=== PATIENT | male | born 1955 | race Caucasian/White ===

== ENCOUNTER 2022-05-10 17:03 | Inpatient (IN) | payer MEDICARE, MEDICAID ==
[~2022-05-10] VITALS: Ht 177.8 cm; Wt 71.4 kg
[~2022-05-10 17:03] MED LIST: ACET-784 PO; BENZ0.5T49 PO; BISA-151 PO; DOCU-350 PO; GABA-1181 PO; LEVO125T4 PO; LITH300C3 PO; LITH600C5 PO; LORA-999 PO; MAGN-169 PO; QUES4 PO; QUET25TA PO; RISP2TAB45 PO; RISP3TAB35 PO
[2022-05-10 17:53] LABS: BASOPHILS % (AUTO) 0.8 % (0.0-2.0); EOSINOPHILS % (AUTO) 4.4 % (1.0-6.0); HEMATOCRIT 36.5 % (41-53); HEMOGLOBIN 12.3 g/dL (13.5-17.5); LYMPHOCYTES # (AUTO) 1.2 K/uL (1.0-4.8); LYMPHOCYTES % (AUTO) 11.6 % (22.0-44.0); MEAN CORPUSCULAR HEMOGLOBIN 31.2 pg (26.0-34.0); MEAN CORPUSCULAR HGB CONC 33.6 G/dL (31.0-37.0); MEAN CORPUSCULAR VOLUME 93 fL (80-100); MONOCYTES # (AUTO) 0.7 K/uL (0.1-1.0); MONOCYTES % (AUTO) 6.8 % (2.0-9.0); NEUTROPHILS # (AUTO) 7.7 K/uL (1.8-7.7); NEUTROPHILS % (AUTO) 76.4 % (40.0-70.0); PLATELET COUNT (AUTO) 210 K/uL (150-450); RED BLOOD CELL COUNT(AUTO) 3.94 MIL/uL (4.50-5.90); RED CELL DISTRIBUTION WIDTH 14.3 % (11.5-14.5)
[2022-05-10 18:00] LABS: AMPHET/METH SCREEN,URINE NEGATIVE (NEGATIVE); BARBITURATE SCREEN, URINE NEGATIVE (NEGATIVE); BENZODIAZEPINES SCREEN,URINE NEGATIVE (NEGATIVE); CANNABINOID SCREEN,URINE NEGATIVE (NEGATIVE); COCAINE SCREEN,URINE NEGATIVE (NEGATIVE); METHADONE SCREEN, URINE NEGATIVE (NEGATIVE); OPIATE SCREEN,URINE NEGATIVE (NEGATIVE); PHENCYCLIDINE SCREEN,URINE NEGATIVE (NEGATIVE)
[2022-05-10 18:02] LABS: ANION GAP 8 mmol/L (8-16); CALCIUM, TOTAL 9.8 mg/dL (8.8-10.5); CARBON DIOXIDE 26 mmol/L (22-29); CHLORIDE 96 mmol/L (98-107); CREATININE 0.91 mg/dL (0.60-1.30); GLOMERULAR FILTR. RATE CALC > 60 mL/min (>60); GLUCOSE,RANDOM 104 mg/dL (70-110); POTASSIUM 4.3 mmol/L (3.5-5.1); SODIUM SERUM 130 mmol/L (136-145); UREA NITROGEN, BLOOD 18 mg/dL (7-18)
[2022-05-10 18:08] LABS: ALANINE AMINOTRANSFERASE 24 U/L (12-78); ALBUMIN 4.3 g/dL (3.4-5.0); ALKALINE PHOSPHATASE 90 U/L (46-116); ASPARTATE AMINOTRANSFERASE 17 U/L (15-37); BILIRUBIN,TOTAL 0.3 mg/dL (0.1-1.0); LITHIUM 0.71 mmol/L (0.60-1.20); TOTAL PROTEIN, SERUM 7.7 g/dL (6.4-8.2)
[2022-05-10 18:24] LABS: COVID AG,FIA SOURCE NASAL SWAB
[2022-05-10] MEDS ORDERED: ZOLPIDEM TARTRATE 10 MG TABLET PO PRN (20:00)
[2022-05-11] MEDS: HALOPERIDOL 5 MG TABLET PO PRN (17:56)
[2022-05-11] MEDS: LORazepam 2 MG TABLET PO PRN (17:56)
[2022-05-11] MEDS: HYDROCHLOROTHIAZIDE 25 MG TABLET PO SCH (18:30)
[2022-05-11] MEDS: LOSARTAN POTASSIUM 50 MG TABLET PO SCH (18:32)
[2022-05-12] MEDS: LOSARTAN POTASSIUM 50 MG TABLET PO SCH (10:45)
[2022-05-12] MEDS: HYDROCHLOROTHIAZIDE 25 MG TABLET PO SCH (10:45)
[2022-05-12] MEDS ORDERED: DiphenhydrAMINE HCL 50 MG/ML VIAL ONE (12:40)
[2022-05-12] MEDS ORDERED: LORazepam 2 MG/ML VIAL ONE (12:40)
[2022-05-12] MEDS ORDERED: HALOPERIDOL LACTATE 5 MG/ML VIAL ONE (12:40)
[2022-05-12] MEDS ORDERED: DiphenhydrAMINE HCL 50 MG/ML VIAL IM ONE (12:45)
[2022-05-12] MEDS ORDERED: LORazepam 2 MG/ML VIAL IM ONE (12:45)
[2022-05-12] MEDS ORDERED: HALOPERIDOL LACTATE 5 MG/ML VIAL IM ONE (12:45)
[2022-05-12 14:25] VITALS: BP 161/78
[2022-05-12] MEDS ORDERED: LOPERAMIDE HCL 2 MG CAPSULE PO PRN (15:45)
[2022-05-12] MEDS ORDERED: GuaiFENesin/D-METHORPHAN [SUGAR-FREE] 200-20MG/10 ML SYRUP UDCUP PO PRN (15:45)
[2022-05-12] MEDS ORDERED: ACETAMINOPHEN 325 MG TABLET PO PRN (15:45)
[2022-05-12] MEDS ORDERED: CloNIDine HCL 0.1 MG TABLET PO PRN (15:45)
[2022-05-12] MEDS ORDERED: DOCUSATE SODIUM 100 MG CAPSULE PO PRN (15:45)
[2022-05-12] MEDS ORDERED: ONDANSETRON HCL 4 MG TABLET PO PRN (15:45)
[2022-05-12] MEDS ORDERED: MAG HYDROX/AL HYDROX/SIMETH ES 30 ML SUSPENSION UDCUP PO PRN (15:45)
[2022-05-12] MEDS ORDERED: PETROLATUM,WHITE 28 GM JELLY TP PRN (15:45)
[2022-05-12] MEDS ORDERED: ALBUTEROL SULFATE HFA 90 MCG/PUFF 8 GM INHALER IH PRN (15:45)
[2022-05-12] MEDS ORDERED: MAGNESIUM HYDROXIDE SUSPENSION 30 ML UDCUP PO PRN (15:45)
[2022-05-12] MEDS ORDERED: NICOTINE 14 MG/24 HOUR PATCH TD PRN (15:45)
[2022-05-12] MEDS ORDERED: LACT10SO10 PO (15:53)
[2022-05-12] MEDS ORDERED: RISP1TAB48 PO (15:53)
[2022-05-12] MEDS ORDERED: LITH300CRT PO (15:53)
[2022-05-12] MEDS ORDERED: LOSA100T58 PO (15:53)
[2022-05-12] MEDS ORDERED: FAMO20 PO (15:53)
[2022-05-12] MEDS ORDERED: OXCA600T18 PO (15:53)
[2022-05-12] MEDS ORDERED: RISP4TAB73 PO (15:53)
[2022-05-12] MEDS ORDERED: ESCI10 PO (15:53)
[2022-05-12] MEDS ORDERED: HYDR12.54 PO (15:53)
[2022-05-12] MEDS ORDERED: LEVO137T2 PO (15:53)
[2022-05-12] MEDS ORDERED: CHOL4PAC8 PO (15:53)
[2022-05-12] MEDS ORDERED: TRIA15CR49 TP (15:53)
[2022-05-12 16:52] VITALS: BP 167/86
[2022-05-13] MEDS: LEVOTHYROXINE SODIUM 137 MCG TABLET PO SCH (06:42)
[2022-05-13] MEDS: HYDROCHLOROTHIAZIDE 25 MG TABLET PO SCH (08:43)
[2022-05-13] MEDS: LOSARTAN POTASSIUM 50 MG TABLET PO SCH (09:14)
[2022-05-13 09:32] VITALS: BP 148/68
[2022-05-13] MEDS: LORazepam 2 MG TABLET PO PRN (12:03)
[2022-05-13] MEDS: GABAPENTIN 300 MG CAPSULE PO SCH ×3 (13:53→20:24)
[2022-05-13] MEDS: QUEtiapine FUMARATE 25 MG TABLET PO SCH ×3 (13:53→20:24)
[2022-05-13] MEDS: RisperiDONE 2 MG TABLET PO SCH (16:33)
[2022-05-13] MEDS: BENZTROPINE MESYLATE 0.5 MG TABLET PO SCH (16:34)
[2022-05-13 16:41] VITALS: BP 123/68
[2022-05-13] MEDS: RisperiDONE 3 MG TABLET PO SCH (20:24)
[2022-05-13] MEDS: LITHIUM CARBONATE 300 MG CAPSULE PO SCH (20:24)
[2022-05-13 20:40] VITALS: BP 151/89
[2022-05-14] MEDS: LEVOTHYROXINE SODIUM 137 MCG TABLET PO SCH (07:03)
[2022-05-14 08:09] VITALS: BP 124/74
[2022-05-14] MEDS: BENZTROPINE MESYLATE 0.5 MG TABLET PO SCH ×3 (08:16→16:27)
[2022-05-14] MEDS: GABAPENTIN 300 MG CAPSULE PO SCH ×4 (08:16→20:53)
[2022-05-14] MEDS: HYDROCHLOROTHIAZIDE 25 MG TABLET PO SCH (08:16)
[2022-05-14] MEDS: QUEtiapine FUMARATE 25 MG TABLET PO SCH ×4 (08:16→20:54)
[2022-05-14] MEDS: LOSARTAN POTASSIUM 50 MG TABLET PO SCH (08:16)
[2022-05-14] MEDS: RisperiDONE 2 MG TABLET PO SCH ×2 (08:16→16:27)
[2022-05-14] MEDS: LITHIUM CARBONATE 600 MG CAPSULE PO SCH (08:16)
[2022-05-14 15:05] VITALS: BP 126/80
[2022-05-14 16:09] VITALS: BP 120/77
[2022-05-14 16:10] VITALS: BP 124/74
[2022-05-14] MEDS: RisperiDONE 3 MG TABLET PO SCH (20:54)
[2022-05-14] MEDS: LITHIUM CARBONATE 300 MG CAPSULE PO SCH (20:54)
[2022-05-15] MEDS: LEVOTHYROXINE SODIUM 137 MCG TABLET PO SCH (07:04)
[2022-05-15 08:21] VITALS: BP 136/70
[2022-05-15] MEDS: BENZTROPINE MESYLATE 0.5 MG TABLET PO SCH ×2 (08:24→16:22)
[2022-05-15] MEDS: LOSARTAN POTASSIUM 50 MG TABLET PO SCH (08:25)
[2022-05-15] MEDS: QUEtiapine FUMARATE 25 MG TABLET PO SCH ×4 (08:27→20:17)
[2022-05-15] MEDS: HYDROCHLOROTHIAZIDE 25 MG TABLET PO SCH (08:27)
[2022-05-15] MEDS: GABAPENTIN 300 MG CAPSULE PO SCH ×4 (08:27→20:17)
[2022-05-15] MEDS: RisperiDONE 2 MG TABLET PO SCH ×2 (08:27→16:22)
[2022-05-15] MEDS: LITHIUM CARBONATE 600 MG CAPSULE PO SCH (08:27)
[2022-05-15 16:00] VITALS: BP 116/68
[2022-05-15] MEDS: OXcarbazepine 300 MG TABLET PO SCH (16:22)
[2022-05-15] MEDS: LITHIUM CARBONATE 300 MG CAPSULE PO SCH (20:17)
[2022-05-15] MEDS: RisperiDONE 3 MG TABLET PO SCH (20:17)
[2022-05-16] MEDS: HALOPERIDOL 5 MG TABLET PO PRN (01:40)
[2022-05-16] MEDS: LORazepam 2 MG TABLET PO PRN (01:40)
[2022-05-16] MEDS: LEVOTHYROXINE SODIUM 137 MCG TABLET PO SCH (07:54)
[2022-05-16] MEDS: LITHIUM CARBONATE 600 MG CAPSULE PO SCH (08:44)
[2022-05-16] MEDS: GABAPENTIN 300 MG CAPSULE PO SCH ×4 (08:44→20:56)
[2022-05-16] MEDS: HYDROCHLOROTHIAZIDE 25 MG TABLET PO SCH (08:44)
[2022-05-16] MEDS: RisperiDONE 2 MG TABLET PO SCH ×2 (08:44→17:03)
[2022-05-16] MEDS: LOSARTAN POTASSIUM 50 MG TABLET PO SCH (08:44)
[2022-05-16 08:45] VITALS: BP 153/83
[2022-05-16] MEDS: BENZTROPINE MESYLATE 0.5 MG TABLET PO SCH ×2 (08:45→17:06)
[2022-05-16] MEDS: QUEtiapine FUMARATE 25 MG TABLET PO SCH ×4 (08:46→20:56)
[2022-05-16] MEDS: OXcarbazepine 300 MG TABLET PO SCH ×2 (08:46→17:04)
[2022-05-16 09:12] LABS: COVID AG,FIA SOURCE NASAL SWAB
[2022-05-16] MEDS: LITHIUM CARBONATE 300 MG CAPSULE PO SCH (20:56)
[2022-05-16] MEDS: RisperiDONE 3 MG TABLET PO SCH (20:56)
[2022-05-17] MEDS: LEVOTHYROXINE SODIUM 137 MCG TABLET PO SCH (06:28)
[2022-05-17] MEDS: LOSARTAN POTASSIUM 50 MG TABLET PO SCH (08:29)
[2022-05-17] MEDS: BENZTROPINE MESYLATE 0.5 MG TABLET PO SCH ×2 (08:29→17:03)
[2022-05-17] MEDS: LITHIUM CARBONATE 600 MG CAPSULE PO SCH (08:30)
[2022-05-17] MEDS: HYDROCHLOROTHIAZIDE 25 MG TABLET PO SCH (08:30)
[2022-05-17] MEDS: OXcarbazepine 300 MG TABLET PO SCH ×2 (08:30→17:03)
[2022-05-17] MEDS: GABAPENTIN 300 MG CAPSULE PO SCH ×4 (08:31→20:08)
[2022-05-17] MEDS: RisperiDONE 2 MG TABLET PO SCH ×2 (08:31→17:03)
[2022-05-17] MEDS: QUEtiapine FUMARATE 25 MG TABLET PO SCH ×4 (08:31→21:03)
[2022-05-17 09:30] VITALS: BP 136/84
[2022-05-17] MEDS: LITHIUM CARBONATE 300 MG CAPSULE PO SCH (20:08)
[2022-05-17] MEDS: RisperiDONE 3 MG TABLET PO SCH (20:09)
[2022-05-18] MEDS: LEVOTHYROXINE SODIUM 137 MCG TABLET PO SCH (06:33)
[2022-05-18 08:17] LABS: COVID AG,FIA SOURCE NASAL SWAB
[2022-05-18] MEDS: LITHIUM CARBONATE 600 MG CAPSULE PO SCH (08:34)
[2022-05-18] MEDS: QUEtiapine FUMARATE 25 MG TABLET PO SCH ×4 (08:34→20:05)
[2022-05-18] MEDS: RisperiDONE 2 MG TABLET PO SCH ×2 (08:34→16:40)
[2022-05-18] MEDS: HYDROCHLOROTHIAZIDE 25 MG TABLET PO SCH (08:34)
[2022-05-18 08:35] VITALS: BP 147/79
[2022-05-18] MEDS: OXcarbazepine 300 MG TABLET PO SCH ×2 (08:35→16:41)
[2022-05-18] MEDS: GABAPENTIN 300 MG CAPSULE PO SCH ×4 (08:35→20:06)
[2022-05-18] MEDS: LOSARTAN POTASSIUM 50 MG TABLET PO SCH (08:36)
[2022-05-18] MEDS: BENZTROPINE MESYLATE 0.5 MG TABLET PO SCH ×2 (08:36→16:41)
[2022-05-18] MEDS: IBUPROFEN 400 MG TABLET PO PRN ×2 (08:39→17:05)
[2022-05-18 08:49] VITALS: BP 147/79
[2022-05-18 16:00] VITALS: BP 127/74
[2022-05-18] MEDS: RisperiDONE 3 MG TABLET PO SCH (20:06)
[2022-05-18] MEDS: LITHIUM CARBONATE 300 MG CAPSULE PO SCH (20:06)
[2022-05-19] MEDS: LEVOTHYROXINE SODIUM 137 MCG TABLET PO SCH (06:29)
[2022-05-19] MEDS: OXcarbazepine 300 MG TABLET PO SCH ×2 (08:08→17:37)
[2022-05-19] MEDS: BENZTROPINE MESYLATE 0.5 MG TABLET PO SCH ×2 (08:09→17:37)
[2022-05-19] MEDS: QUEtiapine FUMARATE 25 MG TABLET PO SCH ×4 (08:09→20:24)
[2022-05-19] MEDS: HYDROCHLOROTHIAZIDE 25 MG TABLET PO SCH (08:09)
[2022-05-19] MEDS: LITHIUM CARBONATE 600 MG CAPSULE PO SCH (08:09)
[2022-05-19] MEDS: GABAPENTIN 300 MG CAPSULE PO SCH ×4 (08:09→20:24)
[2022-05-19] MEDS: RisperiDONE 2 MG TABLET PO SCH ×2 (08:09→17:37)
[2022-05-19] MEDS: LOSARTAN POTASSIUM 50 MG TABLET PO SCH (09:00)
[2022-05-19 11:36] VITALS: BP 110/54
[2022-05-19 17:11] VITALS: BP 115/81
[2022-05-19] MEDS: RisperiDONE 3 MG TABLET PO SCH (20:24)
[2022-05-19] MEDS: LITHIUM CARBONATE 300 MG CAPSULE PO SCH (20:24)
[2022-05-20] MEDS: LEVOTHYROXINE SODIUM 137 MCG TABLET PO SCH (06:31)
[2022-05-20 08:28] VITALS: BP 117/52
[2022-05-20] MEDS: LOSARTAN POTASSIUM 50 MG TABLET PO SCH (10:39)
[2022-05-20] MEDS: BENZTROPINE MESYLATE 0.5 MG TABLET PO SCH ×2 (10:39→14:14)
[2022-05-20] MEDS: HYDROCHLOROTHIAZIDE 25 MG TABLET PO SCH (10:42)
[2022-05-20] MEDS: OXcarbazepine 300 MG TABLET PO SCH ×2 (10:42→17:08)
[2022-05-20] MEDS: GABAPENTIN 300 MG CAPSULE PO SCH ×4 (10:42→20:56)
[2022-05-20] MEDS: RisperiDONE 2 MG TABLET PO SCH ×2 (10:42→17:08)
[2022-05-20] MEDS: LITHIUM CARBONATE 600 MG CAPSULE PO SCH (10:43)
[2022-05-20] MEDS: QUEtiapine FUMARATE 25 MG TABLET PO SCH ×4 (10:43→20:56)
[2022-05-20 16:10] VITALS: BP 119/79
[2022-05-20 16:13] VITALS: BP 119/79
[2022-05-20] MEDS: LITHIUM CARBONATE 300 MG CAPSULE PO SCH (20:56)
[2022-05-20] MEDS: RisperiDONE 3 MG TABLET PO SCH (20:56)
[2022-05-21] MEDS: LEVOTHYROXINE SODIUM 137 MCG TABLET PO SCH (06:47)
[2022-05-21 08:50] VITALS: BP 135/76
[2022-05-21] MEDS: LOSARTAN POTASSIUM 50 MG TABLET PO SCH (09:40)
[2022-05-21] MEDS: BENZTROPINE MESYLATE 0.5 MG TABLET PO SCH ×2 (09:43→17:49)
[2022-05-21] MEDS: HYDROCHLOROTHIAZIDE 25 MG TABLET PO SCH (09:43)
[2022-05-21] MEDS: GABAPENTIN 300 MG CAPSULE PO SCH ×4 (09:43→20:44)
[2022-05-21] MEDS: LITHIUM CARBONATE 600 MG CAPSULE PO SCH (09:43)
[2022-05-21] MEDS: RisperiDONE 2 MG TABLET PO SCH ×2 (09:43→17:49)
[2022-05-21] MEDS: QUEtiapine FUMARATE 25 MG TABLET PO SCH ×4 (09:43→20:44)
[2022-05-21] MEDS: OXcarbazepine 300 MG TABLET PO SCH ×2 (09:44→17:50)
[2022-05-21] MEDS: LITHIUM CARBONATE 300 MG CAPSULE PO SCH (20:44)
[2022-05-21] MEDS: RisperiDONE 3 MG TABLET PO SCH (20:45)
[2022-05-22] MEDS: LEVOTHYROXINE SODIUM 137 MCG TABLET PO SCH (06:56)
[2022-05-22] MEDS: LITHIUM CARBONATE 600 MG CAPSULE PO SCH (08:48)
[2022-05-22] MEDS: QUEtiapine FUMARATE 25 MG TABLET PO SCH ×4 (08:48→20:15)
[2022-05-22] MEDS: OXcarbazepine 300 MG TABLET PO SCH ×2 (08:48→16:48)
[2022-05-22] MEDS: RisperiDONE 2 MG TABLET PO SCH ×2 (08:48→16:47)
[2022-05-22] MEDS: GABAPENTIN 300 MG CAPSULE PO SCH ×4 (08:49→20:16)
[2022-05-22] MEDS: HYDROCHLOROTHIAZIDE 25 MG TABLET PO SCH (08:49)
[2022-05-22] MEDS: BENZTROPINE MESYLATE 0.5 MG TABLET PO SCH ×2 (08:50→16:47)
[2022-05-22] MEDS: LOSARTAN POTASSIUM 50 MG TABLET PO SCH (08:50)
[2022-05-22 09:00] VITALS: BP 161/81
[2022-05-22 16:00] VITALS: BP 113/66
[2022-05-22] MEDS: LITHIUM CARBONATE 300 MG CAPSULE PO SCH (20:15)
[2022-05-22] MEDS: RisperiDONE 3 MG TABLET PO SCH (20:16)
[2022-05-23] MEDS: LEVOTHYROXINE SODIUM 137 MCG TABLET PO SCH (06:33)
[2022-05-23 08:00] VITALS: BP 121/77
[2022-05-23] MEDS: QUEtiapine FUMARATE 25 MG TABLET PO SCH ×4 (08:13→20:12)
[2022-05-23] MEDS: LITHIUM CARBONATE 600 MG CAPSULE PO SCH (08:13)
[2022-05-23] MEDS: GABAPENTIN 300 MG CAPSULE PO SCH ×4 (08:13→20:12)
[2022-05-23] MEDS: HYDROCHLOROTHIAZIDE 25 MG TABLET PO SCH (08:15)
[2022-05-23] MEDS: OXcarbazepine 300 MG TABLET PO SCH ×2 (08:15→16:23)
[2022-05-23] MEDS: LOSARTAN POTASSIUM 50 MG TABLET PO SCH (08:16)
[2022-05-23] MEDS: RisperiDONE 2 MG TABLET PO SCH ×2 (08:16→16:23)
[2022-05-23] MEDS: BENZTROPINE MESYLATE 0.5 MG TABLET PO SCH ×2 (08:16→16:23)
[2022-05-23 16:01] VITALS: BP 113/76
[2022-05-23] MEDS: LITHIUM CARBONATE 300 MG CAPSULE PO SCH (20:12)
[2022-05-23] MEDS: RisperiDONE 3 MG TABLET PO SCH (20:13)
[2022-05-24] MEDS: LEVOTHYROXINE SODIUM 137 MCG TABLET PO SCH (06:24)
[2022-05-24] MEDS: LOSARTAN POTASSIUM 50 MG TABLET PO SCH (08:13)
[2022-05-24] MEDS: BENZTROPINE MESYLATE 0.5 MG TABLET PO SCH ×2 (08:13→16:05)
[2022-05-24] MEDS: QUEtiapine FUMARATE 25 MG TABLET PO SCH ×4 (08:15→20:14)
[2022-05-24] MEDS: RisperiDONE 2 MG TABLET PO SCH ×2 (08:15→16:04)
[2022-05-24] MEDS: LITHIUM CARBONATE 600 MG CAPSULE PO SCH (08:15)
[2022-05-24] MEDS: HYDROCHLOROTHIAZIDE 25 MG TABLET PO SCH (08:15)
[2022-05-24] MEDS: GABAPENTIN 300 MG CAPSULE PO SCH ×4 (08:15→20:14)
[2022-05-24] MEDS: OXcarbazepine 300 MG TABLET PO SCH ×2 (08:15→16:05)
[2022-05-24 08:23] VITALS: BP 121/78
[2022-05-24 16:07] VITALS: BP 98/58
[2022-05-24] MEDS: LITHIUM CARBONATE 300 MG CAPSULE PO SCH (20:14)
[2022-05-24] MEDS: RisperiDONE 3 MG TABLET PO SCH (20:14)
[2022-05-25] MEDS: LEVOTHYROXINE SODIUM 137 MCG TABLET PO SCH (06:22)
[2022-05-25 06:51] LABS: COVID AG,FIA SOURCE NASAL SWAB
[2022-05-25] MEDS: LITHIUM CARBONATE 600 MG CAPSULE PO SCH (08:20)
[2022-05-25] MEDS: OXcarbazepine 300 MG TABLET PO SCH ×2 (08:20→16:36)
[2022-05-25] MEDS: HYDROCHLOROTHIAZIDE 25 MG TABLET PO SCH (08:21)
[2022-05-25] MEDS: QUEtiapine FUMARATE 25 MG TABLET PO SCH ×4 (08:21→20:58)
[2022-05-25] MEDS: LOSARTAN POTASSIUM 50 MG TABLET PO SCH (08:22)
[2022-05-25] MEDS: RisperiDONE 2 MG TABLET PO SCH ×2 (08:22→16:36)
[2022-05-25] MEDS: BENZTROPINE MESYLATE 0.5 MG TABLET PO SCH ×2 (08:22→16:36)
[2022-05-25] MEDS: GABAPENTIN 300 MG CAPSULE PO SCH ×4 (08:22→20:58)
[2022-05-25 09:29] VITALS: BP 143/63
[2022-05-25 16:21] VITALS: BP 128/59
[2022-05-25] MEDS: RisperiDONE 3 MG TABLET PO SCH (20:59)
[2022-05-25] MEDS: LITHIUM CARBONATE 300 MG CAPSULE PO SCH (20:59)
[2022-05-25 21:33] VITALS: BP 139/78
[2022-05-26] MEDS: LEVOTHYROXINE SODIUM 137 MCG TABLET PO SCH (06:17)
[2022-05-26] MEDS: HYDROCHLOROTHIAZIDE 25 MG TABLET PO SCH (08:08)
[2022-05-26] MEDS: LOSARTAN POTASSIUM 50 MG TABLET PO SCH (08:08)
[2022-05-26] MEDS: BENZTROPINE MESYLATE 0.5 MG TABLET PO SCH ×2 (08:08→18:10)
[2022-05-26] MEDS: OXcarbazepine 300 MG TABLET PO SCH ×2 (08:08→18:11)
[2022-05-26] MEDS: GABAPENTIN 300 MG CAPSULE PO SCH ×4 (08:08→20:18)
[2022-05-26] MEDS: QUEtiapine FUMARATE 25 MG TABLET PO SCH ×4 (08:09→20:19)
[2022-05-26] MEDS: RisperiDONE 2 MG TABLET PO SCH ×2 (08:11→18:11)
[2022-05-26] MEDS: LITHIUM CARBONATE 600 MG CAPSULE PO SCH (08:17)
[2022-05-26 08:41] LABS: GLUCOMETER DEV NAME(LOC) 3E.C; GLUCOSE,POINT OF CARE 145 MG/DL (70-110)
[2022-05-26 09:45] LABS: BASOPHILS % (AUTO) 0.4 % (0.0-2.0); EOSINOPHILS % (AUTO) 4.1 % (1.0-6.0); HEMATOCRIT 33.8 % (41-53); HEMOGLOBIN 11.2 g/dL (13.5-17.5); LYMPHOCYTES % (AUTO) 11.1 % (22.0-44.0); MEAN CORPUSCULAR HGB CONC 33.2 G/dL (31.0-37.0); MEAN CORPUSCULAR VOLUME 93 fL (80-100); MONOCYTES # (AUTO) 0.7 K/uL (0.1-1.0); MONOCYTES % (AUTO) 7.5 % (2.0-9.0); NEUTROPHILS % (AUTO) 76.9 % (40.0-70.0); PLATELET COUNT (AUTO) 171 K/uL (150-450); RED BLOOD CELL COUNT(AUTO) 3.62 MIL/uL (4.50-5.90); RED CELL DISTRIBUTION WIDTH 14.1 % (11.5-14.5)
[2022-05-26 09:57] LABS: ANION GAP 6 mmol/L (8-16); CALCIUM, TOTAL 9.4 mg/dL (8.8-10.5); CARBON DIOXIDE 27 mmol/L (22-29); CHLORIDE 101 mmol/L (98-107); CREATININE 0.94 mg/dL (0.60-1.30); GLUCOSE,RANDOM 120 mg/dL (70-110); POTASSIUM 4.4 mmol/L (3.5-5.1); SODIUM SERUM 134 mmol/L (136-145); UREA NITROGEN, BLOOD 31 mg/dL (7-18)
[2022-05-26 10:01] LABS: GLOMERULAR FILTR. RATE CALC > 60 mL/min (>60)
[2022-05-26 10:02] LABS: ALANINE AMINOTRANSFERASE 25 U/L (12-78); ALBUMIN 3.6 g/dL (3.4-5.0); ALKALINE PHOSPHATASE 84 U/L (46-116); ASPARTATE AMINOTRANSFERASE 13 U/L (15-37); BILIRUBIN,TOTAL 0.2 mg/dL (0.1-1.0); TOTAL PROTEIN, SERUM 6.4 g/dL (6.4-8.2)
[2022-05-26 11:42] VITALS: BP 118/74
[2022-05-26 16:39] VITALS: BP 100/57
[2022-05-26] MEDS: RisperiDONE 3 MG TABLET PO SCH (20:18)
[2022-05-26] MEDS: LITHIUM CARBONATE 300 MG CAPSULE PO SCH (20:19)
[2022-05-26 23:00] VITALS: BP 110/79
[2022-05-27] MEDS: LEVOTHYROXINE SODIUM 137 MCG TABLET PO SCH (06:10)
[2022-05-27] MEDS: LOSARTAN POTASSIUM 50 MG TABLET PO SCH (08:01)
[2022-05-27] MEDS: BENZTROPINE MESYLATE 0.5 MG TABLET PO SCH ×2 (08:01→17:04)
[2022-05-27] MEDS: GABAPENTIN 300 MG CAPSULE PO SCH ×4 (08:03→20:36)
[2022-05-27] MEDS: OXcarbazepine 300 MG TABLET PO SCH ×2 (08:03→17:04)
[2022-05-27] MEDS: HYDROCHLOROTHIAZIDE 25 MG TABLET PO SCH (08:03)
[2022-05-27] MEDS: LITHIUM CARBONATE 600 MG CAPSULE PO SCH (08:03)
[2022-05-27] MEDS: RisperiDONE 2 MG TABLET PO SCH ×2 (08:03→17:04)
[2022-05-27] MEDS: QUEtiapine FUMARATE 25 MG TABLET PO SCH ×4 (08:04→20:36)
[2022-05-27 08:15] VITALS: BP_SYST 117; BP_DIAS 52; BP_DIAS 72
[2022-05-27 16:47] VITALS: BP 98/65
[2022-05-27] MEDS: LITHIUM CARBONATE 300 MG CAPSULE PO SCH (20:36)
[2022-05-27] MEDS: RisperiDONE 3 MG TABLET PO SCH (20:36)
[2022-05-28] MEDS: LEVOTHYROXINE SODIUM 137 MCG TABLET PO SCH (06:33)
[2022-05-28] MEDS: LITHIUM CARBONATE 600 MG CAPSULE PO SCH (07:56)
[2022-05-28] MEDS: BENZTROPINE MESYLATE 0.5 MG TABLET PO SCH (07:56)
[2022-05-28] MEDS: GABAPENTIN 300 MG CAPSULE PO SCH (07:56)
[2022-05-28] MEDS: OXcarbazepine 300 MG TABLET PO SCH (07:56)
[2022-05-28] MEDS: RisperiDONE 2 MG TABLET PO SCH (07:57)
[2022-05-28] MEDS: QUEtiapine FUMARATE 25 MG TABLET PO SCH (07:57)
[2022-05-28 08:00] VITALS: BP 121/61
[2022-05-28] MEDS: LOSARTAN POTASSIUM 50 MG TABLET PO SCH (08:23)
[2022-05-28] MEDS: HYDROCHLOROTHIAZIDE 25 MG TABLET PO SCH (08:24)
== END 2022-05-28 09:40 | DRG 885 ==
LOC: EMS 17:05 → 3EC 05-12 13:35
PROVIDERS: ADMIT Psychiatry & Neurology Child & Adolescent Psychiatry; ATTEND Psychiatry & Neurology Child & Adolescent Psychiatry
DX: F25.0 Schizoaffective disorder, bipolar type (principal); E44.1 Mild protein-calorie malnutrition; E87.1 Hypo-osmolality and hyponatremia; D64.9 Anemia, unspecified; Z20.822 Contact with and (suspected) exposure to COVID-19; E03.9 Hypothyroidism, unspecified; G40.909 Epilepsy, unspecified, not intractable, without status epilepticus; I10 Essential (primary) hypertension; J44.9 Chronic obstructive pulmonary disease, unspecified; K21.9 Gastro-esophageal reflux disease without esophagitis; Z88.5 Allergy status to narcotic agent; Z88.6 Allergy status to analgesic agent; Z68.22 Body mass index [BMI] 22.0-22.9, adult
CPT/HCPCS: 80053; 80178; 82962; 85025; 87081; 99285; G0480; J1200; J1630; J2060